=== PATIENT | male | born 1935 | race Asian ===

== ENCOUNTER 2018-07-27 17:06 | Inpatient (IN) | payer OTHER, BC ==
[2018-07-27 17:35] LABS: ABNORMAL IP MESSAGE 1; HEMATOCRIT 16.3 % (42.0-52.0); MEAN CORPUSCULAR HEMOGLOBIN 29.5 pg (29.0-33.0); MEAN CORPUSCULAR HGB CONC 33.1 g/dl (32.0-37.0); MEAN CORPUSCULAR VOLUME 89.1 fl (82.0-101.0); MEAN PLATELET VOLUME 9.3 fl (7.4-10.4); PLATELET COUNT 172 10^3/UL (140-415); POSITIVE DIFF @See below; RED BLOOD COUNT 1.83 10^6/ul (4.70-6.10); RED CELL DISTRIBUTION WIDTH 15.5 % (11.5-14.5)
[2018-07-27 17:37] LABS: ADD MAN DIFF? YES; HEMOGLOBIN 5.4 g/dl (14.0-18.0)
[2018-07-27 17:47] LABS: ALANINE AMINOTRANSFERASE 35 IU/L (13-69); ALBUMIN/GLOBULIN RATIO 0.83; ALKALINE PHOSPHATASE 245 IU/L (42-121); ANION GAP 21 (8-16); ASPARTATE AMINO TRANSFERASE 45 IU/L (15-46); BILIRUBIN,INDIRECT 0.2 mg/dl (0-1.1); BILIRUBIN,TOTAL 0.2 mg/dl (0.2-1.3); BLOOD UREA NITROGEN 84 mg/dl (7-20); CALCIUM 7.7 mg/dl (8.4-10.2); CARBON DIOXIDE 18 mmol/L (21-31); CHLORIDE 97 mmol/L (97-110); CREATININE 9.86 mg/dl (0.61-1.24); GLUCOSE 132 mg/dl (70-220); SODIUM 130 mmol/L (135-144); TOTAL PROTEIN 6.6 g/dl (6.1-8.1)
[2018-07-27] MEDS: ALBUTEROL 0.083% (NEB) 2.5 MG/3 ML AMP NEB (17:48)
[2018-07-27 17:59] LABS: B-TYPE NATRIURETIC PEPTIDE 2530 PG/ML (0-450); TROPONIN-I 0.015 ng/ml (0.000-0.120)
[2018-07-27] MEDS ORDERED: FUROSEMIDE 20 MG INJ IV (18:04)
[2018-07-27 18:37] LABS: HEMATOCRIT 20.6 % (42.0-52.0)
[2018-07-27 18:41] LABS: HEMOGLOBIN 6.7 g/dl (14.0-18.0)
[2018-07-27] MEDS: FUROSEMIDE 40 MG INJ IV (18:42)
[2018-07-27 18:58] LABS: ANION GAP 17 (8-16); BLOOD UREA NITROGEN 88 mg/dl (7-20); CALCIUM 7.3 mg/dl (8.4-10.2); CARBON DIOXIDE 17 mmol/L (21-31); CHLORIDE 100 mmol/L (97-110); CREATININE 9.71 mg/dl (0.61-1.24); GLUCOSE 139 mg/dl (70-220); SODIUM 128 mmol/L (135-144)
[2018-07-27 19:05] LABS: BAND NEUTROPHILS #M 0.2 10^3/ul (0.0-0.6); BAND NEUTROPHILS % (M) 3 % (0-4); EOSINOPHILS # 0.1 10^3/ul (0.0-0.5); EOSINOPHILS % (M) 2 % (0.0-7.0); LYMPHOCYTES # 0.6 10^3/ul (0.8-2.9); LYMPHOCYTES #M 0.6 10^3/ul (0.8-2.9); LYMPHOCYTES % (M) 9 % (15-51); MONOCYTE # 0.4 10^3/ul (0.3-0.9); MONOCYTE #M 0.3 10^3/ul (0.3-0.9); MONOCYTES % (M) 5 % (0-11); SEG NEUT #M 5.7 10^3/ul (1.7-7.5); SEGMENTED NEUTROPHILS (M) % 81 % (39-77)
[2018-07-27 19:06] LABS: HYPOCHROMASIA 2+ (0-0)
[2018-07-27 19:10] LABS: POTASSIUM 6.1 mmol/L (3.5-5.1)
[2018-07-27 19:31] LABS: IMMEDIATE SPIN CROSSMATCH 1 2
[2018-07-27] MEDS ORDERED: ACETAMINOPHEN 325 MG TAB PO ×2 (20:30→21:00)
[2018-07-27] MEDS ORDERED: ONDANSETRON 4 MG INJ IV ×2 (20:30→21:00)
[2018-07-27] MEDS: INSULIN REGULAR, HUMAN 100 UNIT/1 ML 3ML VIAL IV (20:30)
[2018-07-27] MEDS: NA BICARBONATE 8.4% 50 ML SYG IV (20:31)
[2018-07-27] MEDS: DEXTROSE 50% 50 ML SYRINGE IV (20:31)
[2018-07-27] MEDS ORDERED: NACL 0.9% 3 ML SYG IV (21:00)
[2018-07-27 21:46] LABS: AADO2 Arterial 133.1 mmHg (7.0-24.0); Allen Test ACCEPTAB; Arterial Base Excess -3.5 mmol/L (-3.0-3); Arterial Blood Gas Oxygen Sat 98.1 mmHG (95.0-100.0); Arterial COHb 0.1 % (0.0-3.0); Arterial Fraction of Oxyhgb 97.5 % (93.0-99.0); Arterial HCO3 20.2 mmol/L (22.0-26.0); Arterial MetHb 0.5 % (0.0-1.5); Arterial Total Hemglobin 7.5 g/dl (12.0-18.0); Arterial pCO2 30.7 mmhg (35-45); MODE NASAL CANNULA; Site Right Radial
[2018-07-27] MEDS: LEVALBUTEROL (NEB) 0.63 MG/3 ML AMP HHN (22:07)
[2018-07-27] MEDS: SENNA TAB PO (22:32)
[2018-07-27] MEDS: ATORVASTATIN 10 MG TAB PO (22:45)
[2018-07-27] MEDS: INSULIN GLARGINE [LANTus] (100 UNITS/ML) SYG SC (22:45)
[2018-07-28 01:17] LABS: ANION GAP 19 (8-16); BLOOD UREA NITROGEN 86 mg/dl (7-20); CALCIUM 7.3 mg/dl (8.4-10.2); CARBON DIOXIDE 19 mmol/L (21-31); CHLORIDE 97 mmol/L (97-110); CREATININE 10.35 mg/dl (0.61-1.24); GLUCOSE 160 mg/dl (70-220); POTASSIUM 5.4 mmol/L (3.5-5.1); SODIUM 130 mmol/L (135-144)
[2018-07-28] MEDS: LORAZEPAM 2 MG INJ IV ×4 (01:33→22:09)
[2018-07-28] MEDS: LEVALBUTEROL (NEB) 0.63 MG/3 ML AMP HHN ×2 (02:00→21:40)
[2018-07-28] MEDS: HALOPERIDOL 5 MG INJ IV (04:34)
[2018-07-28 05:41] LABS: ADD MAN DIFF? NO
[2018-07-28 05:45] LABS: ABNORMAL IP MESSAGE 1; BASOPHILS % 0.3 % (0.0-2.0); EOSINOPHILS # 0.1 10^3/ul (0.0-0.5); EOSINOPHILS % 2.3 % (0.0-7.0); HEMATOCRIT 19.9 % (42.0-52.0); LYMPHOCYTES # 0.6 10^3/ul (0.8-2.9); LYMPHOCYTES % 14.6 % (15.0-51.0); MEAN CORPUSCULAR HGB CONC 33.2 g/dl (32.0-37.0); MEAN CORPUSCULAR VOLUME 84.3 fl (82.0-101.0); MEAN PLATELET VOLUME 9.4 fl (7.4-10.4); MONOCYTE # 0.4 10^3/ul (0.3-0.9); MONOCYTES % 10.1 % (0.0-11.0); NEUTROPHIL # 2.9 10^3/ul (1.6-7.5); NEUTROPHILS % 71.4 % (39.0-77.0); PLATELET COUNT 134 10^3/UL (140-415); POSITIVE DIFF @See below; RED BLOOD COUNT 2.36 10^6/ul (4.70-6.10); RED CELL DISTRIBUTION WIDTH 16.1 % (11.5-14.5)
[2018-07-28 05:56] LABS: HEMOGLOBIN 6.6 g/dl (14.0-18.0)
[2018-07-28 06:25] LABS: ANION GAP 17 (8-16); BILIRUBIN,TOTAL 0.2 mg/dl (0.2-1.3); CHOL/HDL RATIO 2.8 RATIO; LDL CHOLESTEROL,CALCULATED 37 mg/dl
[2018-07-28 06:46] LABS: ALANINE AMINOTRANSFERASE 32 IU/L (13-69); ALBUMIN 2.4 g/dl (3.3-4.9); ALKALINE PHOSPHATASE 184 IU/L (42-121); ASPARTATE AMINO TRANSFERASE 35 IU/L (15-46); BILIRUBIN,INDIRECT 0.2 mg/dl (0-1.1); BLOOD UREA NITROGEN 84 mg/dl (7-20); CALCIUM 7.2 mg/dl (8.4-10.2); CARBON DIOXIDE 20 mmol/L (21-31); CHLORIDE 100 mmol/L (97-110); CHOLESTEROL 82 mg/dl (100-200); CREATININE 9.41 mg/dl (0.61-1.24); GLUCOSE 106 mg/dl (70-220); HDL CHOLESTEROL 29 mg/dl (31-75); SODIUM 132 mmol/L (135-144); TOTAL PROTEIN 5.4 g/dl (6.1-8.1); TRIGLYCERIDES 78 mg/dl (0-149)
[2018-07-28 06:58] LABS: IRON 67 ug/dl (35-150)
[2018-07-28 07:07] LABS: % IRON SATURATION 40 % SAT (22-52); TOTAL IRON BINDING CAPACITY 166 ug/dl (241-421)
[2018-07-28] MEDS ORDERED: METOPROLOL 50 MG TAB PO (09:00)
[2018-07-28] MEDS: TAMSULOSIN (SR) 0.4 MG CAP PO (09:00)
[2018-07-28] MEDS: ALLOPURINOL 300 MG TAB PO (09:00)
[2018-07-28] MEDS: EPOETIN 10000 UNITS/1 ML INJ (ESRD) SC (11:22)
[2018-07-28 12:41] LABS: ANION GAP 16 (8-16); BLOOD UREA NITROGEN 81 mg/dl (7-20); CALCIUM 7.3 mg/dl (8.4-10.2); CARBON DIOXIDE 22 mmol/L (21-31); CHLORIDE 103 mmol/L (97-110); CREATININE 7.83 mg/dl (0.61-1.24); GLUCOSE 73 mg/dl (70-220); POTASSIUM 4.8 mmol/L (3.5-5.1); SODIUM 136 mmol/L (135-144)
[2018-07-28 13:25] LABS: ADD UMIC YES; UR ASCORBIC ACID NEGATIVE (NEGATIVE); UR BILIRUBIN (Dip) NEGATIVE (NEGATIVE); UR BLOOD (Dip) 3+ mg/dL (NEGATIVE); UR CLARITY CLOUDY (CLEAR); UR COLOR RED (YELLOW); UR GLUCOSE (Dip) NEGATIVE (NEGATIVE); UR KETONES (Dip) NEGATIVE (NEGATIVE); UR LEUKOCYTE ESTERASE (Dip) 3+ Leu/ul (NEGATIVE); UR MUCUS FEW /HPF (NONE SEEN); UR NITRITE (Dip) NEGATIVE (NEGATIVE); UR RBC > 182 /HPF (0-5); UR TOTAL PROTEIN (Dip) 2+ mg/dl (NEGATIVE); UR UROBILINOGEN (Dip) NEGATIVE (NEGATIVE); UR WBC > 182 /HPF (0-5)
[2018-07-28 13:36] LABS: SODIUM,URINE RANDOM 53 mmol/L (30-90)
[2018-07-28 13:36] LABS: CREATININE,URINE RANDOM 81.22 mg/dl (20-370)
[2018-07-28 14:03] LABS: OCCULT BLOOD STOOL POSITIVE (NEGATIVE)
[2018-07-28] MEDS: FUROSEMIDE 40 MG INJ IV (18:43)
[2018-07-28 19:56] LABS: ANION GAP 17 (8-16); BLOOD UREA NITROGEN 70 mg/dl (7-20); CALCIUM 7.7 mg/dl (8.4-10.2); CARBON DIOXIDE 21 mmol/L (21-31); CHLORIDE 106 mmol/L (97-110); CREATININE 6.05 mg/dl (0.61-1.24); GLUCOSE 93 mg/dl (70-220); POTASSIUM 4.8 mmol/L (3.5-5.1); SODIUM 139 mmol/L (135-144)
[2018-07-28] MEDS: ATORVASTATIN 10 MG TAB PO (21:00)
[2018-07-28] MEDS: SENNA TAB PO (21:00)
[2018-07-28] MEDS: IPRATROPIUM (NEB) 0.5 MG/2.5 ML AMP NEB (21:40)
[2018-07-28] MEDS: INSULIN GLARGINE [LANTus] (100 UNITS/ML) SYG SC (22:05)
[2018-07-28] MEDS: DILTIAZEM 25 MG INJ IV (22:11)
[2018-07-29] MEDS: IPRATROPIUM (NEB) 0.5 MG/2.5 ML AMP NEB (01:20)
[2018-07-29] MEDS: LEVALBUTEROL (NEB) 0.63 MG/3 ML AMP HHN (01:20)
[2018-07-29] MEDS: LORAZEPAM 2 MG INJ IV ×2 (02:17→05:19)
[2018-07-29] MEDS: FUROSEMIDE 40 MG INJ IV ×2 (03:32→13:27)
[2018-07-29] MEDS: DILTIAZEM-D5W 125MG/125ML DRIP 125 ML IV ×2 (03:51→16:59)
[2018-07-29 05:54] LABS: ADD MAN DIFF? NO
[2018-07-29 05:58] LABS: WHITE BLOOD COUNT 6.6 10^3/ul (4.8-10.8)
[2018-07-29 05:58] LABS: BASOPHILS % 0.5 % (0.0-2.0); EOSINOPHILS # 0.1 10^3/ul (0.0-0.5); HEMATOCRIT 29.2 % (42.0-52.0); HEMOGLOBIN 9.4 g/dl (14.0-18.0); LYMPHOCYTES # 0.7 10^3/ul (0.8-2.9); LYMPHOCYTES % 10.7 % (15.0-51.0); MEAN CORPUSCULAR HEMOGLOBIN 28.2 pg (29.0-33.0); MEAN CORPUSCULAR HGB CONC 32.2 g/dl (32.0-37.0); MEAN CORPUSCULAR VOLUME 87.7 fl (82.0-101.0); MEAN PLATELET VOLUME 10.3 fl (7.4-10.4); MONOCYTE # 0.5 10^3/ul (0.3-0.9); MONOCYTES % 7.6 % (0.0-11.0); NEUTROPHIL # 5.1 10^3/ul (1.6-7.5); NEUTROPHILS % 76.8 % (39.0-77.0); PLATELET COUNT 151 10^3/UL (140-415); POSITIVE DIFF @See below; RED BLOOD COUNT 3.33 10^6/ul (4.70-6.10); RED CELL DISTRIBUTION WIDTH 17.2 % (11.5-14.5)
[2018-07-29 06:35] LABS: ANION GAP 17 (8-16); BLOOD UREA NITROGEN 60 mg/dl (7-20); CALCIUM 7.7 mg/dl (8.4-10.2); CARBON DIOXIDE 21 mmol/L (21-31); CHLORIDE 105 mmol/L (97-110); CREATININE 4.38 mg/dl (0.61-1.24); GLUCOSE 96 mg/dl (70-220); MAGNESIUM 1.7 mg/dl (1.7-2.5); PHOSPHORUS 4.9 mg/dl (2.5-4.9); POTASSIUM 4.5 mmol/L (3.5-5.1); SODIUM 138 mmol/L (135-144)
[2018-07-29] MEDS: TAMSULOSIN (SR) 0.4 MG CAP PO (08:17)
[2018-07-29] MEDS: ALLOPURINOL 300 MG TAB PO (08:17)
[2018-07-29] MEDS: MAGNESIUM SULFATE 3 GM in DEXTROSE 5% 100 ML IVPB (13:26)
[2018-07-29 19:46] LABS: PTH CALCIUM 7.2 mg/dL (8.6-10.3)
[2018-07-29] MEDS ORDERED: GLUCOSE GEL 15 GRAM TUBE BUCCAL (21:00)
[2018-07-29] MEDS ORDERED: DEXTROSE 50% 50 ML SYRINGE IV ×2 (21:00)
[2018-07-29] MEDS ORDERED: GLUCAGON 1 MG INJ IM (21:00)
[2018-07-29] MEDS ORDERED: GLUCOSE GEL 15 GRAM TUBE PO ×2 (21:00)
[2018-07-29] MEDS: SENNA TAB PO (21:38)
[2018-07-29] MEDS: ATORVASTATIN 10 MG TAB PO (21:38)
[2018-07-29] MEDS: INSULIN GLARGINE [LANTus] (100 UNITS/ML) SYG SC (21:42)
[2018-07-29] MEDS: INSULIN ASPART [NOVOLOG] 3 ML PEN SC (21:42)
[2018-07-29] MEDS: FUROSEMIDE 20 MG INJ IV (23:23)
[2018-07-30] MEDS: ACCU-CHEK XX (02:51)
[2018-07-30] MEDS: DILTIAZEM-D5W 125MG/125ML DRIP 125 ML IV ×3 (04:08→19:43)
[2018-07-30 06:16] LABS: ADD MAN DIFF? NO
[2018-07-30 06:21] LABS: BASOPHILS % 0.3 % (0.0-2.0); EOSINOPHILS # 0.2 10^3/ul (0.0-0.5); HEMATOCRIT 29.4 % (42.0-52.0); HEMOGLOBIN 9.7 g/dl (14.0-18.0); LYMPHOCYTES % 13.1 % (15.0-51.0); MEAN CORPUSCULAR HEMOGLOBIN 28.4 pg (29.0-33.0); MEAN CORPUSCULAR VOLUME 86.2 fl (82.0-101.0); MEAN PLATELET VOLUME 9.2 fl (7.4-10.4); MONOCYTE # 0.7 10^3/ul (0.3-0.9); NEUTROPHIL # 5.6 10^3/ul (1.6-7.5); NEUTROPHILS % 72.4 % (39.0-77.0); NUCLEATED RED BLOOD CELLS% 0.5 /100WBC (0.0-0.0); PLATELET COUNT 186 10^3/UL (140-415); RED BLOOD COUNT 3.41 10^6/ul (4.70-6.10); RED CELL DISTRIBUTION WIDTH 16.7 % (11.5-14.5)
[2018-07-30 06:21] LABS: WHITE BLOOD COUNT 7.7 10^3/ul (4.8-10.8)
[2018-07-30 06:43] LABS: ANION GAP 11 (8-16); BLOOD UREA NITROGEN 40 mg/dl (7-20); CALCIUM 7.9 mg/dl (8.4-10.2); CARBON DIOXIDE 28 mmol/L (21-31); CHLORIDE 103 mmol/L (97-110); CREATININE 2.45 mg/dl (0.61-1.24); GLUCOSE 123 mg/dl (70-220); PHOSPHORUS 4.3 mg/dl (2.5-4.9); POTASSIUM 3.9 mmol/L (3.5-5.1); SODIUM 138 mmol/L (135-144)
[2018-07-30] MEDS: INSULIN ASPART [NOVOLOG] 3 ML PEN SC ×4 (07:46→20:18)
[2018-07-30] MEDS: TAMSULOSIN (SR) 0.4 MG CAP PO (08:12)
[2018-07-30] MEDS: ALLOPURINOL 300 MG TAB PO (08:12)
[2018-07-30 08:52] LABS: PTH INTACT 235 pg/mL (14-64)
[2018-07-30] MEDS: FUROSEMIDE 20 MG INJ IV (09:00)
[2018-07-30 15:46] LABS: CREATININE, RANDOM URINE 88 mg/dL (20-320); MICROALBUMIN 25.8 mg/dL; MICROALBUMIN/CREATININE RATIO 293 (<30)
[2018-07-30 19:28] LABS: PROSTATE SPECIFIC ANTIGEN > 1000.0 ng/ml (0.0-4.0)
[2018-07-30] MEDS: ATORVASTATIN 10 MG TAB PO (20:29)
[2018-07-30] MEDS: SENNA TAB PO (20:29)
[2018-07-30] MEDS: INSULIN GLARGINE [LANTus] (100 UNITS/ML) SYG SC (20:30)
[2018-07-31] MEDS: ACCU-CHEK XX (02:00)
[2018-07-31 05:44] LABS: ADD MAN DIFF? NO
[2018-07-31 05:50] LABS: BASOPHILS % 0.3 % (0.0-2.0); EOSINOPHILS # 0.3 10^3/ul (0.0-0.5); EOSINOPHILS % 4.3 % (0.0-7.0); HEMATOCRIT 27.6 % (42.0-52.0); HEMOGLOBIN 9.1 g/dl (14.0-18.0); LYMPHOCYTES # 0.9 10^3/ul (0.8-2.9); LYMPHOCYTES % 11.2 % (15.0-51.0); MEAN CORPUSCULAR HEMOGLOBIN 28.5 pg (29.0-33.0); MEAN CORPUSCULAR VOLUME 86.5 fl (82.0-101.0); MEAN PLATELET VOLUME 8.9 fl (7.4-10.4); MONOCYTE # 0.8 10^3/ul (0.3-0.9); NEUTROPHIL # 5.4 10^3/ul (1.6-7.5); NEUTROPHILS % 70.4 % (39.0-77.0); NUCLEATED RED BLOOD CELLS% 0.3 /100WBC (0.0-0.0); PLATELET COUNT 160 10^3/UL (140-415); RED BLOOD COUNT 3.19 10^6/ul (4.70-6.10); RED CELL DISTRIBUTION WIDTH 16.2 % (11.5-14.5)
[2018-07-31 05:50] LABS: WHITE BLOOD COUNT 7.7 10^3/ul (4.8-10.8)
[2018-07-31 06:30] LABS: ANION GAP 11 (8-16); BLOOD UREA NITROGEN 27 mg/dl (7-20); CALCIUM 7.8 mg/dl (8.4-10.2); CARBON DIOXIDE 28 mmol/L (21-31); CHLORIDE 100 mmol/L (97-110); CREATININE 1.73 mg/dl (0.61-1.24); GLUCOSE 90 mg/dl (70-220); MAGNESIUM 1.7 mg/dl (1.7-2.5); PHOSPHORUS 3.5 mg/dl (2.5-4.9); POTASSIUM 3.2 mmol/L (3.5-5.1); SODIUM 136 mmol/L (135-144)
[2018-07-31] MEDS: INSULIN ASPART [NOVOLOG] 3 ML PEN SC ×4 (08:00→20:14)
[2018-07-31] MEDS: ALLOPURINOL 300 MG TAB PO (08:10)
[2018-07-31] MEDS: TAMSULOSIN (SR) 0.4 MG CAP PO (08:10)
[2018-07-31] MEDS: POTASSIUM CHLORIDE (SR) 20 MEQ TAB PO (10:08)
[2018-07-31 11:08] LABS: INR 1.13; PROTIME 14.7 Sec (11.9-14.9); PT RATIO 1.1
[2018-07-31] MEDS: FUROSEMIDE 20 MG INJ IV (14:57)
[2018-07-31] MEDS: SENNA TAB PO (20:09)
[2018-07-31] MEDS: ATORVASTATIN 10 MG TAB PO (20:09)
[2018-07-31] MEDS: INSULIN GLARGINE [LANTus] (100 UNITS/ML) SYG SC (20:14)
[2018-08-01] MEDS: LEVALBUTEROL (NEB) 0.63 MG/3 ML AMP HHN (00:56)
[2018-08-01] MEDS: ACCU-CHEK XX (02:00)
[2018-08-01 06:11] LABS: ADD MAN DIFF? NO
[2018-08-01] MEDS: DILTIAZEM-D5W 125MG/125ML DRIP 125 ML IV (06:17)
[2018-08-01 06:19] LABS: ABNORMAL IP MESSAGE 1; BASOPHILS % 0.3 % (0.0-2.0); EOSINOPHILS # 0.4 10^3/ul (0.0-0.5); EOSINOPHILS % 4.8 % (0.0-7.0); HEMATOCRIT 27.2 % (42.0-52.0); HEMOGLOBIN 8.9 g/dl (14.0-18.0); LYMPHOCYTES % 12.8 % (15.0-51.0); MEAN CORPUSCULAR HEMOGLOBIN 28.3 pg (29.0-33.0); MEAN CORPUSCULAR HGB CONC 32.7 g/dl (32.0-37.0); MEAN CORPUSCULAR VOLUME 86.6 fl (82.0-101.0); MEAN PLATELET VOLUME 9.2 fl (7.4-10.4); MONOCYTE # 0.7 10^3/ul (0.3-0.9); MONOCYTES % 9.4 % (0.0-11.0); NEUTROPHIL # 5.1 10^3/ul (1.6-7.5); NEUTROPHILS % 67.2 % (39.0-77.0); NUCLEATED RED BLOOD CELLS% 0.3 /100WBC (0.0-0.0); PLATELET COUNT 180 10^3/UL (140-415); POSITIVE DIFF @See below; RED BLOOD COUNT 3.14 10^6/ul (4.70-6.10)
[2018-08-01 06:19] LABS: WHITE BLOOD COUNT 7.6 10^3/ul (4.8-10.8)
[2018-08-01 06:42] LABS: ANION GAP 8 (8-16); BLOOD UREA NITROGEN 19 mg/dl (7-20); CALCIUM 7.7 mg/dl (8.4-10.2); CARBON DIOXIDE 28 mmol/L (21-31); CHLORIDE 100 mmol/L (97-110); CREATININE 1.47 mg/dl (0.61-1.24); GLUCOSE 174 mg/dl (70-220); MAGNESIUM 1.6 mg/dl (1.7-2.5); PHOSPHORUS 3.1 mg/dl (2.5-4.9); POTASSIUM 3.6 mmol/L (3.5-5.1); SODIUM 132 mmol/L (135-144)
[2018-08-01] MEDS: TAMSULOSIN (SR) 0.4 MG CAP PO (08:33)
[2018-08-01] MEDS: ALLOPURINOL 300 MG TAB PO (08:33)
[2018-08-01] MEDS: INSULIN ASPART [NOVOLOG] 3 ML PEN SC ×3 (08:35→17:46)
[2018-08-01] MEDS: MAGNESIUM SULFATE 2 GM/50 ML 50 ML IVPB (09:21)
[2018-08-01 10:13] LABS: ANISOCYTOSIS 1+ (0-0); BAND NEUTROPHILS #M 0.3 10^3/ul (0.0-0.6); BAND NEUTROPHILS % (M) 4 % (0-4); BASOPHIL #M 0.1 10^3/ul (0.0-0.0); BASOPHILS % (M) 2 % (0-2); EOSINOPHILS % (M) 2 % (0-7); GIANT THROMBO% (M) 1 % (0-0); LYMPHOCYTES % (M) 14 % (15-51); MICROCYTOSIS 1+ (0-0); MONOCYTE #M 0.8 10^3/ul (0.3-0.9); MONOCYTES % (M) 11 % (0-11); MYELOCYTES #M 0.1 10^3/ul (0.0-0.0); MYELOCYTES % (M) 2 % (0-0); PLATELET ESTIMATE NORMAL; POIKILOCYTOSIS 1+ (0-0); POLYCHROMASIA 3+ (0-0); SCHISTOCYTES 1+ (0-0); SEGMENTED NEUTROPHILS (M) % 65 % (39-77); SMUDGE%M 10 % (0-0)
[2018-08-01] MEDS: LIDOCAINE 1% (MPF) 5 ML VIAL (14:24)
[2018-08-01] MEDS: METOPROLOL (XL) 100 MG TAB PO (17:34)
[2018-08-01] MEDS: LABETALOL HCL 20MG INJ IV (17:35)
[2018-08-01 18:14] LABS: FLUID TOTAL PROTEIN 3.3 g/dl
[2018-08-01] MEDS ORDERED: METOPROLOL 25 MG TAB PO ×2 (21:00)
== END 2018-08-01 20:20 | DRG 291 ==
LOC: E/R 17:06 → 6WM 07-29 10:22
PROC: 30233N1 Transfusion of Nonautologous Red Blood Cells into Peripheral Vein, Percutaneous Approach (ICD-10-PCS; 2018-07-27)
PROC: 0W993ZZ Drainage of Right Pleural Cavity, Percutaneous Approach (ICD-10-PCS; principal; 2018-08-01)
DX: I13.0 Hypertensive heart and chronic kidney disease with heart failure and stage 1 through stage 4 chronic kidney disease, or unspecified chronic kidney disease (principal); J96.01 Acute respiratory failure with hypoxia; G93.41 Metabolic encephalopathy; N17.0 Acute kidney failure with tubular necrosis; E87.1 Hypo-osmolality and hyponatremia; E87.2 Acidosis; D62 Acute posthemorrhagic anemia; E10.22 Type 1 diabetes mellitus with diabetic chronic kidney disease; N18.9 Chronic kidney disease, unspecified; E87.5 Hyperkalemia; R31.0 Gross hematuria; N40.1 Benign prostatic hyperplasia with lower urinary tract symptoms; R33.8 Other retention of urine
CPT/HCPCS: 36415; 36430; 36600; 71045; 74176; 76775; 76942; 80048; 80053; 80061; 81001; 81003; 82043; 82270; 82306; 82728; 82803; 82962; 83036; 83540; 83735; 83880; 83970; 84100; 84153; 84154; 84155; 84157; 84300; 84484; 85014; 85018; 85025; 85610; 86850; 86900; 86901; 86920; 88104; 88305; 93005; 93306; 94640; 94660; 94664; 96374; 99291-25

== ENCOUNTER 2018-08-16 04:44 | Inpatient (IN) | payer OTHER, BC ==
[2018-08-16 05:02] LABS: AADO2 Arterial 106.3 mmHg (7.0-24.0); Allen Test ACCEPTAB; Arterial Base Excess -0.5 mmol/L (-3.0-3); Arterial COHb 0.3 % (0.0-3.0); Arterial Fraction of Oxyhgb 97.4 % (93.0-99.0); Arterial MetHb 0.3 % (0.0-1.5); MODE NASAL CANNULA; Site Right Radial
[2018-08-16 05:17] LABS: ADD MAN DIFF? NO
[2018-08-16 05:18] LABS: BASOPHILS % 0.2 % (0.0-2.0); HEMATOCRIT 24.1 % (42.0-52.0); HEMOGLOBIN 8.2 g/dl (14.0-18.0); LYMPHOCYTES # 0.8 10^3/ul (0.8-2.9); LYMPHOCYTES % 8.9 % (15.0-51.0); MEAN CORPUSCULAR HEMOGLOBIN 27.8 pg (29.0-33.0); MEAN CORPUSCULAR VOLUME 81.7 fl (82.0-101.0); MEAN PLATELET VOLUME 8.6 fl (7.4-10.4); MONOCYTE # 0.9 10^3/ul (0.3-0.9); MONOCYTES % 9.5 % (0.0-11.0); NEUTROPHIL # 7.4 10^3/ul (1.6-7.5); NEUTROPHILS % 80.3 % (39.0-77.0); PLATELET COUNT 199 10^3/UL (140-415); RED BLOOD COUNT 2.95 10^6/ul (4.70-6.10); RED CELL DISTRIBUTION WIDTH 15.4 % (11.5-14.5)
[2018-08-16 05:18] LABS: WHITE BLOOD COUNT 9.2 10^3/ul (4.8-10.8)
[2018-08-16] MEDS: CEFEPIME 2GM/50 ML (PMX) 50 ML IVPB (05:25)
[2018-08-16] MEDS: SOD CHLORIDE 0.9% 1,000 ML IV ×2 (05:25→14:25)
[2018-08-16] MEDS: LACTATED RINGER'S 1,000 ML IV (05:26)
[2018-08-16 05:38] LABS: INR 1.24; PROTIME 15.8 Sec (11.9-14.9); PT RATIO 1.2
[2018-08-16 05:51] LABS: LACTIC ACID 1.6 mmol/L (0.5-2.0)
[2018-08-16 05:52] LABS: ANION GAP 15 (8-16); BLOOD UREA NITROGEN 21 mg/dl (7-20); CALCIUM 7.9 mg/dl (8.4-10.2); CARBON DIOXIDE 22 mmol/L (21-31); CHLORIDE 93 mmol/L (97-110); CREATININE 1.79 mg/dl (0.61-1.24); GLUCOSE 193 mg/dl (70-220); POTASSIUM 4.9 mmol/L (3.5-5.1); SODIUM 125 mmol/L (135-144)
[2018-08-16 06:03] LABS: TROPONIN-I 0.051 ng/ml (0.000-0.120)
[2018-08-16] MEDS: SOD CHLORIDE 0.9% 500 ML IV (06:03)
[2018-08-16] MEDS: VANCOMYCIN 1 GM (PMX) 250 ML IVPB (07:00)
[2018-08-16 07:36] LABS: LACTIC ACID 1.4 mmol/L (0.5-2.0)
[2018-08-16 09:40] LABS: LACTIC ACID 1.3 mmol/L (0.5-2.0)
[2018-08-16] MEDS ORDERED: LEVALBUTEROL (NEB) 1.25 MG/0.5 ML AMP (09:48)
[2018-08-16] MEDS: LEVALBUTEROL (NEB) 1.25 MG/0.5 ML AMP HHN ×2 (09:50→20:30)
[2018-08-16] MEDS ORDERED: ACETAMINOPHEN 500 MG TAB (10:07)
[2018-08-16] MEDS: ACETAMINOPHEN 500 MG TAB PO (10:18)
[2018-08-16] MEDS ORDERED: DOCUSATE SODIUM 100 MG CAP PO (14:00)
[2018-08-16] MEDS ORDERED: HYDROCODONE/APAP (5/325) TAB PO (14:00)
[2018-08-16] MEDS ORDERED: ACETAMINOPHEN 650 MG SUPP PR (14:00)
[2018-08-16] MEDS ORDERED: GLUCAGON 1 MG INJ IM (14:00)
[2018-08-16] MEDS ORDERED: BISACODYL 10 MG SUPP PR (14:00)
[2018-08-16] MEDS ORDERED: ALBUTEROL 0.083% (NEB) 2.5 MG/3 ML AMP NEB (14:00)
[2018-08-16] MEDS ORDERED: DEXTROSE 50% 50 ML SYRINGE IV ×2 (14:00)
[2018-08-16] MEDS ORDERED: morphine 2 MG INJ IV (14:00)
[2018-08-16] MEDS ORDERED: NACL 0.9% 3 ML SYG IV (14:00)
[2018-08-16] MEDS ORDERED: GLUCOSE GEL 15 GRAM TUBE BUCCAL (14:00)
[2018-08-16] MEDS ORDERED: GLUCOSE GEL 15 GRAM TUBE PO ×2 (14:00)
[2018-08-16] MEDS: FUROSEMIDE 40 MG INJ IV (14:25)
[2018-08-16] MEDS ORDERED: VANCOMYCIN IV PER PHARMACY XX (14:30)
[2018-08-16 14:38] LABS: AADO2 Arterial 23.2 mmHg (7.0-24.0); Allen Test ACCEPTAB; Arterial Base Excess -1.7 mmol/L (-3.0-3); Arterial COHb 0.3 % (0.0-3.0); Arterial Fraction of Oxyhgb 98.3 % (93.0-99.0); Arterial HCO3 21.4 mmol/L (22.0-26.0); Arterial MetHb 0.4 % (0.0-1.5); Arterial Total Hemglobin 9.4 g/dl (12.0-18.0); Arterial pCO2 30.1 mmhg (35-45); MODE NASAL CANNULA; Site Right Radial
[2018-08-16] MEDS: INSULIN ASPART [NOVOLOG] 3 ML PEN SC ×4 (15:22→21:00)
[2018-08-16 15:31] LABS: LACTIC ACID 1.3 mmol/L (0.5-2.0)
[2018-08-16] MEDS: SOD CHLORIDE 0.9% 250 ML IV (19:30)
[2018-08-16] MEDS: METOPROLOL 25 MG TAB PO (19:39)
[2018-08-16 19:41] LABS: ADD UMIC YES; UR ASCORBIC ACID NEGATIVE (NEGATIVE); UR BILIRUBIN (Dip) NEGATIVE (NEGATIVE); UR BLOOD (Dip) 2+ mg/dL (NEGATIVE); UR CLARITY TURBID (CLEAR); UR COLOR YELLOW (YELLOW); UR GLUCOSE (Dip) NEGATIVE (NEGATIVE); UR KETONES (Dip) NEGATIVE (NEGATIVE); UR LEUKOCYTE ESTERASE (Dip) 3+ Leu/ul (NEGATIVE); UR NITRITE (Dip) POSITIVE (NEGATIVE); UR NONSQUAMOUS EPITHELIAL CELL 11 /HPF (NONE SEEN); UR RBC 95 /HPF (0-5); UR TOTAL PROTEIN (Dip) 2+ mg/dl (NEGATIVE); UR UROBILINOGEN (Dip) NEGATIVE (NEGATIVE); UR WBC > 182 /HPF (0-5)
[2018-08-16] MEDS ORDERED: ADENOSINE 2 ML (19:50)
[2018-08-16] MEDS ORDERED: METOPROLOL 5 MG INJ (19:52)
[2018-08-16] MEDS: ALBUTEROL/IPRATROPIUM (NEB) 3 ML AMP HHN (20:00)
[2018-08-16] MEDS: BUDESONIDE (NEB) 0.5MG/2ML AMP HHN (20:00)
[2018-08-16] MEDS ORDERED: ADENOSINE 6 MG INJ IV (20:00)
[2018-08-16] MEDS: ALPRAZOLAM 0.25 MG TAB PO (20:00)
[2018-08-16 20:05] LABS: SODIUM,URINE RANDOM 58 mmol/L (30-90)
[2018-08-16 20:10] LABS: CREATININE,URINE RANDOM 70.47 mg/dl (20-370); PROTEIN/CREAT RATIO 2.73 RATIO
[2018-08-16] MEDS: METOPROLOL 5 MG INJ IV (20:41)
[2018-08-16] MEDS: SENNA TAB PO (20:51)
[2018-08-16] MEDS: BUMETANIDE 1 MG INJ IV (20:51)
[2018-08-16] MEDS: ATORVASTATIN 10 MG TAB PO (20:51)
[2018-08-16] MEDS: INSULIN GLARGINE [LANTus] (100 UNITS/ML) SYG SC (20:59)
[2018-08-16] MEDS: LACTOBACILLUS RHAMNOSUS CAP PO (21:00)
[2018-08-16] MEDS ORDERED: HALOPERIDOL 5 MG INJ IM (21:00)
[2018-08-16] MEDS: HEPARIN 5,000 UNIT/0.5 ML VIAL SC (21:00)
[2018-08-17] MEDS: VANCOMYCIN 500MG/NS (PMX) 100 ML IVPB
[2018-08-17] MEDS ORDERED: LEVALBUTEROL (NEB) 1.25 MG/0.5 ML AMP HHN (01:30)
[2018-08-17] MEDS: ACCU-CHEK XX (02:00)
[2018-08-17] MEDS: LEVALBUTEROL (NEB) 1.25 MG/0.5 ML AMP HHN ×4 (02:18→20:21)
[2018-08-17] MEDS: PANTOPRAZOLE 40 MG INJ IV (05:12)
[2018-08-17] MEDS: FUROSEMIDE 20 MG INJ IV ×2 (05:12→18:51)
[2018-08-17] MEDS: CEFEPIME 2GM/50 ML (PMX) 50 ML IVPB (05:12)
[2018-08-17 06:13] LABS: ADD MAN DIFF? NO
[2018-08-17 06:30] LABS: WHITE BLOOD COUNT 8.2 10^3/ul (4.8-10.8)
[2018-08-17 06:30] LABS: ABNORMAL IP MESSAGE 1; BASOPHILS % 0.1 % (0.0-2.0); EOSINOPHILS % 0.2 % (0.0-7.0); HEMATOCRIT 23.3 % (42.0-52.0); HEMOGLOBIN 7.6 g/dl (14.0-18.0); LYMPHOCYTES # 0.5 10^3/ul (0.8-2.9); LYMPHOCYTES % 5.5 % (15.0-51.0); MEAN CORPUSCULAR HEMOGLOBIN 27.7 pg (29.0-33.0); MEAN CORPUSCULAR HGB CONC 32.6 g/dl (32.0-37.0); MEAN PLATELET VOLUME 8.7 fl (7.4-10.4); MONOCYTE # 0.6 10^3/ul (0.3-0.9); MONOCYTES % 7.6 % (0.0-11.0); NEUTROPHILS % 84.9 % (39.0-77.0); PLATELET COUNT 177 10^3/UL (140-415); POSITIVE DIFF @See below; RED BLOOD COUNT 2.74 10^6/ul (4.70-6.10); RED CELL DISTRIBUTION WIDTH 15.6 % (11.5-14.5)
[2018-08-17 06:48] LABS: ALANINE AMINOTRANSFERASE 41 IU/L (13-69); ALBUMIN 1.9 g/dl (3.3-4.9); ALKALINE PHOSPHATASE 307 IU/L (42-121); ANION GAP 15 (8-16); ASPARTATE AMINO TRANSFERASE 58 IU/L (15-46); BILIRUBIN,INDIRECT 0.2 mg/dl (0-1.1); BILIRUBIN,TOTAL 0.2 mg/dl (0.2-1.3); BLOOD UREA NITROGEN 30 mg/dl (7-20); CALCIUM 7.5 mg/dl (8.4-10.2); CARBON DIOXIDE 23 mmol/L (21-31); CHLORIDE 99 mmol/L (97-110); CHOL/HDL RATIO 2.5 RATIO; CHOLESTEROL 67 mg/dl (100-200); CREATININE 1.63 mg/dl (0.61-1.24); GLUCOSE 135 mg/dl (70-220); HDL CHOLESTEROL 26 mg/dl (31-75); LDL CHOLESTEROL,CALCULATED 16 mg/dl; PHOSPHORUS 4.3 mg/dl (2.5-4.9); POTASSIUM 4.2 mmol/L (3.5-5.1); SODIUM 133 mmol/L (135-144); TOTAL PROTEIN 4.6 g/dl (6.1-8.1); TRIGLYCERIDES 123 mg/dl (0-149)
[2018-08-17 06:56] LABS: URIC ACID 5.3 mg/dl (3.1-7.9)
[2018-08-17 06:56] LABS: CREATINE KINASE 298 IU/L (23-200)
[2018-08-17 07:04] LABS: FREE THYROXINE INDEX (Calc) 2.68 ug/ml (0.65-3.89); T3 UPTAKE 52.5 % (23.5-40.5); T4 (THYROXINE) 5.1 ug/dl (5.5-11.0)
[2018-08-17 07:13] LABS: HEMOGLOBIN A1C 6.9 % (0-5.9)
[2018-08-17 07:17] LABS: THYROID STIMULATING HORMONE 0.741 MIU/L (0.465-4.680)
[2018-08-17] MEDS: INSULIN ASPART [NOVOLOG] 3 ML PEN SC ×7 (07:55→20:12)
[2018-08-17] MEDS: BUDESONIDE (NEB) 0.5MG/2ML AMP HHN ×2 (08:20→20:22)
[2018-08-17 08:30] LABS: BAND NEUTROPHILS #M 1.1 10^3/ul (0.0-0.6); BAND NEUTROPHILS % (M) 14 % (0-4); BURR CELLS 1+ (0-0); EOSINOPHILS % (M) 1 % (0-7); GIANT THROMBO% (M) 1 % (0-0); LYMPHOCYTES % (M) 1 % (15-51); MONOCYTE #M 0.4 10^3/ul (0.3-0.9); MONOCYTES % (M) 6 % (0-11); PLATELET ESTIMATE NORMAL; POIKILOCYTOSIS 1+ (0-0); POLYCHROMASIA 1+ (0-0); SEG NEUT #M 6.5 10^3/ul (1.6-7.5); SEGMENTED NEUTROPHILS (M) % 78 % (39-77); SMUDGE%M 12 % (0-0); SPHEROCYTES 1+ (0-0); TOXIC GRANULATION 2+ (0-0)
[2018-08-17] MEDS: ALLOPURINOL 300 MG TAB PO (09:08)
[2018-08-17] MEDS: TAMSULOSIN (SR) 0.4 MG CAP PO (09:08)
[2018-08-17] MEDS: AMLODIPINE 5 MG TAB PO (09:08)
[2018-08-17] MEDS: LACTOBACILLUS RHAMNOSUS CAP PO ×2 (09:09→20:12)
[2018-08-17] MEDS: ASPIRIN 81 MG TAB PO (09:09)
[2018-08-17] MEDS: MULTIVITAMINS THERAPEUTIC TAB PO (09:09)
[2018-08-17] MEDS: METOPROLOL 50 MG TAB PO ×2 (09:09→20:13)
[2018-08-17] MEDS: HEPARIN 5,000 UNIT/0.5 ML VIAL SC ×2 (09:14→20:15)
[2018-08-17 12:31] LABS: TROPONIN-I 0.022 ng/ml (0.000-0.120)
[2018-08-17 12:49] LABS: CREATINE KINASE 283 IU/L (23-200)
[2018-08-17 12:59] LABS: CK INDEX 0.4; CK-MB 1.08 ng/ml (0.0-2.4)
[2018-08-17 13:03] LABS: TROPONIN-I 0.018 ng/ml (0.000-0.120)
[2018-08-17] MEDS: LIDOCAINE 1% (MPF) 5 ML VIAL (16:32)
[2018-08-17 17:16] LABS: FLD PMN% 29.2 %; FLD RBC 14000 /uL; FLD WBC 339 /cmm
[2018-08-17 18:52] LABS: FLD CLARITY HAZY; FLD COLOR RED
[2018-08-17 18:52] LABS: FLD TYPE THORACENTHESIS
[2018-08-17 18:53] LABS: FLD MN% 70.8 %
[2018-08-17] MEDS ORDERED: PENDING SANTYL ORDER FOR WOUND CARE XX (20:00)
[2018-08-17] MEDS: SENNA TAB PO (20:12)
[2018-08-17] MEDS: ATORVASTATIN 10 MG TAB PO (20:12)
[2018-08-17] MEDS: INSULIN GLARGINE [LANTus] (100 UNITS/ML) SYG SC (20:15)
[2018-08-18] MEDS: VANCOMYCIN 500MG/NS (PMX) 100 ML IVPB
[2018-08-18] MEDS: ACCU-CHEK XX (02:00)
[2018-08-18] MEDS: LEVALBUTEROL (NEB) 1.25 MG/0.5 ML AMP HHN ×4 (02:30→19:13)
[2018-08-18] MEDS: CEFEPIME 2GM/50 ML (PMX) 50 ML IVPB (04:00)
[2018-08-18 06:38] LABS: ADD MAN DIFF? NO
[2018-08-18 06:40] LABS: ABNORMAL IP MESSAGE 1; BASOPHILS % 0.2 % (0.0-2.0); EOSINOPHILS % 0.5 % (0.0-7.0); LYMPHOCYTES # 0.6 10^3/ul (0.8-2.9); LYMPHOCYTES % 6.9 % (15.0-51.0); MEAN CORPUSCULAR HEMOGLOBIN 27.9 pg (29.0-33.0); MEAN CORPUSCULAR HGB CONC 33.3 g/dl (32.0-37.0); MEAN CORPUSCULAR VOLUME 83.7 fl (82.0-101.0); MEAN PLATELET VOLUME 8.8 fl (7.4-10.4); MONOCYTE # 0.7 10^3/ul (0.3-0.9); MONOCYTES % 7.8 % (0.0-11.0); NEUTROPHIL # 6.9 10^3/ul (1.6-7.5); NEUTROPHILS % 81.8 % (39.0-77.0); PLATELET COUNT 146 10^3/UL (140-415); POSITIVE DIFF @See below; RED BLOOD COUNT 2.51 10^6/ul (4.70-6.10); RED CELL DISTRIBUTION WIDTH 15.7 % (11.5-14.5)
[2018-08-18 06:40] LABS: WHITE BLOOD COUNT 8.5 10^3/ul (4.8-10.8)
[2018-08-18] MEDS: PANTOPRAZOLE 40 MG INJ IV (06:43)
[2018-08-18] MEDS: FUROSEMIDE 20 MG INJ IV ×2 (06:43→17:10)
[2018-08-18 07:31] LABS: ANION GAP 11 (8-16); BLOOD UREA NITROGEN 31 mg/dl (7-20); CALCIUM 7.7 mg/dl (8.4-10.2); CARBON DIOXIDE 24 mmol/L (21-31); CHLORIDE 97 mmol/L (97-110); GLUCOSE 129 mg/dl (70-220); POTASSIUM 3.8 mmol/L (3.5-5.1); SODIUM 128 mmol/L (135-144)
[2018-08-18] MEDS: BUDESONIDE (NEB) 0.5MG/2ML AMP HHN ×2 (08:14→19:13)
[2018-08-18] MEDS: HEPARIN 5,000 UNIT/0.5 ML VIAL SC ×2 (08:35→20:31)
[2018-08-18] MEDS: INSULIN ASPART [NOVOLOG] 3 ML PEN SC ×7 (08:36→20:32)
[2018-08-18] MEDS: MULTIVITAMINS THERAPEUTIC TAB PO (08:37)
[2018-08-18] MEDS: ASPIRIN 81 MG TAB PO (08:37)
[2018-08-18] MEDS: TAMSULOSIN (SR) 0.4 MG CAP PO (08:37)
[2018-08-18] MEDS: ALLOPURINOL 300 MG TAB PO (08:37)
[2018-08-18] MEDS: LACTOBACILLUS RHAMNOSUS CAP PO ×2 (08:38→20:20)
[2018-08-18] MEDS: METOPROLOL 50 MG TAB PO ×2 (08:38→20:21)
[2018-08-18 11:51] LABS: IRON 37 ug/dl (35-150)
[2018-08-18 12:00] LABS: % IRON SATURATION 27 % SAT (22-52); TOTAL IRON BINDING CAPACITY 139 ug/dl (241-421)
[2018-08-18 12:10] LABS: PREALBUMIN 4.8 mg/dl (17.6-36.0)
[2018-08-18 14:35] LABS: OSMOLALITY 267 mOsm/kg (280-295)
[2018-08-18] MEDS ORDERED: morphine LIQ (10 MG/5 ML) CUP PO (17:00)
[2018-08-18] MEDS: SOD FERRIC GLUC COMPLX 125 MG in SOD CHLORIDE 0.9% 100 ML IVPB (17:08)
[2018-08-18] MEDS: EPOETIN 3000 UNITS/ML (NON ESRD/NON ONCOLOGY) SC (17:10)
[2018-08-18] MEDS: SENNA TAB PO (20:20)
[2018-08-18] MEDS: ATORVASTATIN 10 MG TAB PO (20:21)
[2018-08-18] MEDS: MUPIROCIN 2% 22 GM OINT TOP (20:26)
[2018-08-18] MEDS: INSULIN GLARGINE [LANTus] (100 UNITS/ML) SYG SC (20:31)
[2018-08-18] MEDS ORDERED: MUPIROCIN 2% 22 GM OINT TOP (21:00)
[2018-08-19] MEDS: VANCOMYCIN 500MG/NS (PMX) 100 ML IVPB (00:27)
[2018-08-19] MEDS: LEVALBUTEROL (NEB) 1.25 MG/0.5 ML AMP HHN ×4 (01:18→20:51)
[2018-08-19] MEDS: ACCU-CHEK XX (01:27)
[2018-08-19] MEDS: CEFEPIME 2GM/50 ML (PMX) 50 ML IVPB (04:35)
[2018-08-19] MEDS: PANTOPRAZOLE (EC) 40 MG TAB PO (05:12)
[2018-08-19] MEDS: FUROSEMIDE 20 MG TAB PO (05:13)
[2018-08-19 06:40] LABS: ADD MAN DIFF? NO
[2018-08-19 06:44] LABS: ABNORMAL IP MESSAGE 1; BASOPHILS % 0.2 % (0.0-2.0); EOSINOPHILS # 0.1 10^3/ul (0.0-0.5); EOSINOPHILS % 0.9 % (0.0-7.0); HEMATOCRIT 20.9 % (42.0-52.0); LYMPHOCYTES # 0.7 10^3/ul (0.8-2.9); LYMPHOCYTES % 7.3 % (15.0-51.0); MEAN CORPUSCULAR HEMOGLOBIN 27.7 pg (29.0-33.0); MEAN CORPUSCULAR VOLUME 83.9 fl (82.0-101.0); MONOCYTE # 0.6 10^3/ul (0.3-0.9); MONOCYTES % 6.4 % (0.0-11.0); NEUTROPHIL # 7.9 10^3/ul (1.6-7.5); NEUTROPHILS % 80.9 % (39.0-77.0); PLATELET COUNT 146 10^3/UL (140-415); POSITIVE DIFF @See below; RED BLOOD COUNT 2.49 10^6/ul (4.70-6.10); RED CELL DISTRIBUTION WIDTH 15.7 % (11.5-14.5)
[2018-08-19 06:44] LABS: WHITE BLOOD COUNT 9.8 10^3/ul (4.8-10.8)
[2018-08-19 07:08] LABS: HEMOGLOBIN 6.9 g/dl (14.0-18.0)
[2018-08-19 07:36] LABS: ANION GAP 13 (8-16); BLOOD UREA NITROGEN 30 mg/dl (7-20); CALCIUM 7.5 mg/dl (8.4-10.2); CARBON DIOXIDE 23 mmol/L (21-31); CHLORIDE 95 mmol/L (97-110); CREATININE 1.33 mg/dl (0.61-1.24); GLUCOSE 135 mg/dl (70-220); POTASSIUM 3.6 mmol/L (3.5-5.1); SODIUM 127 mmol/L (135-144)
[2018-08-19] MEDS: INSULIN ASPART [NOVOLOG] 3 ML PEN SC ×7 (07:55→20:16)
[2018-08-19] MEDS: TAMSULOSIN (SR) 0.4 MG CAP PO (08:14)
[2018-08-19] MEDS: LACTOBACILLUS RHAMNOSUS CAP PO ×2 (08:14→20:25)
[2018-08-19] MEDS: ALLOPURINOL 300 MG TAB PO (08:14)
[2018-08-19] MEDS: ASPIRIN 81 MG TAB PO (08:14)
[2018-08-19] MEDS: METOPROLOL 50 MG TAB PO ×2 (08:14→20:18)
[2018-08-19] MEDS: MULTIVITAMINS THERAPEUTIC TAB PO (08:14)
[2018-08-19] MEDS: BALSAM PERU/CASTOR OIL 60 GM TUBE TOP (08:15)
[2018-08-19] MEDS: MUPIROCIN 2% 22 GM OINT TOP ×2 (08:15→20:19)
[2018-08-19] MEDS: HEPARIN 5,000 UNIT/0.5 ML VIAL SC ×2 (08:36→20:23)
[2018-08-19] MEDS: BUDESONIDE (NEB) 0.5MG/2ML AMP HHN ×2 (08:52→20:51)
[2018-08-19 09:29] LABS: ANISOCYTOSIS 1+ (0-0); BAND NEUTROPHILS #M 0.9 10^3/ul (0.0-0.6); BAND NEUTROPHILS % (M) 10 % (0-4); BASOPHILS % (M) 1 % (0-2); EOSINOPHILS % (M) 1 % (0-7); LYMPHOCYTES #M 0.1 10^3/ul (0.8-2.9); LYMPHOCYTES % (M) 2 % (15-51); MONOCYTE #M 0.1 10^3/ul (0.3-0.9); MONOCYTES % (M) 2 % (0-11); PLATELET ESTIMATE DECREASED; SEG NEUT #M 8.3 10^3/ul (1.6-7.5); SEGMENTED NEUTROPHILS (M) % 84 % (39-77); SMUDGE%M 7 % (0-0)
[2018-08-19] MEDS ORDERED: SOD CHLORIDE 0.9% 500 ML IV (10:30)
[2018-08-19] MEDS ORDERED: ALBUMIN HUMAN 25% 100 ML IV (10:30)
[2018-08-19 12:11] LABS: HEMATOCRIT 19.9 % (42.0-52.0)
[2018-08-19 12:37] LABS: HEMOGLOBIN 6.6 g/dl (14.0-18.0)
[2018-08-19 14:25] LABS: IMMEDIATE SPIN CROSSMATCH 1 2
[2018-08-19] MEDS: LEVOFLOXACIN 500 MG TAB PO (17:40)
[2018-08-19] MEDS: FUROSEMIDE 20 MG INJ IV (17:41)
[2018-08-19] MEDS: BARIUM SULF 2% 450 ML BTL (BERRY SMOOTHIE) PO (18:30)
[2018-08-19] MEDS: SENNA TAB PO (20:17)
[2018-08-19] MEDS: ATORVASTATIN 10 MG TAB PO (20:18)
[2018-08-19] MEDS: DOXYCYCLINE 100 MG TAB PO (20:18)
[2018-08-19] MEDS: INSULIN GLARGINE [LANTus] (100 UNITS/ML) SYG SC (20:24)
[2018-08-20] MEDS ORDERED: VANCOMYCIN 750 MG in SOD CHLORIDE 0.9% 150 ML IVPB
[2018-08-20] MEDS: LEVALBUTEROL (NEB) 1.25 MG/0.5 ML AMP HHN ×4 (01:58→19:33)
[2018-08-20] MEDS: ACCU-CHEK XX (02:00)
[2018-08-20] MEDS: LEVOFLOXACIN 500 MG TAB PO (05:06)
[2018-08-20] MEDS: PANTOPRAZOLE (EC) 40 MG TAB PO (05:06)
[2018-08-20 06:37] LABS: ABNORMAL IP MESSAGE 1; HEMATOCRIT 25.9 % (42.0-52.0); HEMOGLOBIN 8.9 g/dl (14.0-18.0); MEAN CORPUSCULAR HEMOGLOBIN 29.1 pg (29.0-33.0); MEAN CORPUSCULAR HGB CONC 34.4 g/dl (32.0-37.0); MEAN CORPUSCULAR VOLUME 84.6 fl (82.0-101.0); MEAN PLATELET VOLUME 9.4 fl (7.4-10.4); NUCLEATED RED BLOOD CELLS% 0.2 /100WBC (0.0-0.0); PLATELET COUNT 134 10^3/UL (140-415); POSITIVE DIFF @See below; RED BLOOD COUNT 3.06 10^6/ul (4.70-6.10); RED CELL DISTRIBUTION WIDTH 15.2 % (11.5-14.5)
[2018-08-20 06:37] LABS: WHITE BLOOD COUNT 11.5 10^3/ul (4.8-10.8)
[2018-08-20 06:49] LABS: ADD MAN DIFF? YES
[2018-08-20 06:57] LABS: ANION GAP 11 (8-16); BLOOD UREA NITROGEN 27 mg/dl (7-20); CALCIUM 7.7 mg/dl (8.4-10.2); CARBON DIOXIDE 24 mmol/L (21-31); CHLORIDE 98 mmol/L (97-110); CREATININE 1.23 mg/dl (0.61-1.24); GLUCOSE 126 mg/dl (70-220); POTASSIUM 3.8 mmol/L (3.5-5.1); SODIUM 129 mmol/L (135-144)
[2018-08-20 07:06] LABS: B-TYPE NATRIURETIC PEPTIDE 1840 PG/ML (0-450)
[2018-08-20 07:31] LABS: CANCER ANTIGEN 19-9 15.2 U/ml (0.0-37.0)
[2018-08-20] MEDS: BUDESONIDE (NEB) 0.5MG/2ML AMP HHN ×2 (07:46→19:33)
[2018-08-20] MEDS: INSULIN ASPART [NOVOLOG] 3 ML PEN SC ×7 (07:55→20:27)
[2018-08-20 08:25] LABS: BAND NEUTROPHILS #M 0.4 10^3/ul (0.0-0.6); BAND NEUTROPHILS % (M) 4 % (0-4); LYMPHOCYTES #M 0.3 10^3/ul (0.8-2.9); LYMPHOCYTES % (M) 3 % (15-51); MONOCYTE #M 0.4 10^3/ul (0.3-0.9); MONOCYTES % (M) 4 % (0-11); PLASMA CELLS #M 0.1 10^3/ul (0.0-0.0); PLASMAC%(M) 1 % (0); PLATELET ESTIMATE DECREASED; PROMYELOCYTES #M 0.1 10^3/ul (0-0); PROMYELOCYTES % (M) 1 % (0-0); SEG NEUT #M 10.1 10^3/ul (1.6-7.5); SEGMENTED NEUTROPHILS (M) % 87 % (39-77); SMUDGE%M 16 % (0-0)
[2018-08-20] MEDS: DOXYCYCLINE 100 MG TAB PO ×2 (09:02→20:28)
[2018-08-20] MEDS: FUROSEMIDE 20 MG TAB PO (09:02)
[2018-08-20] MEDS: TAMSULOSIN (SR) 0.4 MG CAP PO (09:02)
[2018-08-20] MEDS: ALLOPURINOL 300 MG TAB PO (09:02)
[2018-08-20] MEDS: LACTOBACILLUS RHAMNOSUS CAP PO ×2 (09:03→20:28)
[2018-08-20] MEDS: METOPROLOL 50 MG TAB PO ×2 (09:04→20:30)
[2018-08-20] MEDS: ASPIRIN 81 MG TAB PO (09:05)
[2018-08-20] MEDS: MULTIVITAMINS THERAPEUTIC TAB PO (09:05)
[2018-08-20] MEDS: MUPIROCIN 2% 22 GM OINT TOP ×2 (09:05→20:29)
[2018-08-20] MEDS: BALSAM PERU/CASTOR OIL 60 GM TUBE TOP (09:05)
[2018-08-20] MEDS: HEPARIN 5,000 UNIT/0.5 ML VIAL SC (09:28)
[2018-08-20 09:39] LABS: PROSTATE SPECIFIC ANTIGEN > 1000.0 ng/ml (0.0-4.0)
[2018-08-20] MEDS: EPOETIN 3000 UNITS/ML (NON ESRD/NON ONCOLOGY) SC (17:46)
[2018-08-20] MEDS: ATORVASTATIN 10 MG TAB PO (20:28)
[2018-08-20] MEDS: SENNA TAB PO (20:28)
[2018-08-20] MEDS: INSULIN GLARGINE [LANTus] (100 UNITS/ML) SYG SC (20:38)
[2018-08-21] MEDS: LEVALBUTEROL (NEB) 1.25 MG/0.5 ML AMP HHN ×4 (01:20→20:30)
[2018-08-21] MEDS: ACCU-CHEK XX (02:00)
[2018-08-21] MEDS: PANTOPRAZOLE (EC) 40 MG TAB PO (05:47)
[2018-08-21] MEDS: LEVOFLOXACIN 500 MG TAB PO (05:47)
[2018-08-21] MEDS: INSULIN ASPART [NOVOLOG] 3 ML PEN SC ×7 (07:55→20:25)
[2018-08-21] MEDS: BUDESONIDE (NEB) 0.5MG/2ML AMP HHN ×2 (07:55→20:30)
[2018-08-21] MEDS: ASPIRIN 81 MG TAB PO (08:52)
[2018-08-21] MEDS: TAMSULOSIN (SR) 0.4 MG CAP PO (08:52)
[2018-08-21] MEDS: DOXYCYCLINE 100 MG TAB PO ×2 (08:52→20:24)
[2018-08-21] MEDS: LACTOBACILLUS RHAMNOSUS CAP PO ×2 (08:52→20:24)
[2018-08-21] MEDS: ALLOPURINOL 300 MG TAB PO (08:52)
[2018-08-21] MEDS: MULTIVITAMINS THERAPEUTIC TAB PO (08:53)
[2018-08-21] MEDS: BALSAM PERU/CASTOR OIL 60 GM TUBE TOP (09:00)
[2018-08-21] MEDS: METOPROLOL 50 MG TAB PO ×2 (09:00→20:25)
[2018-08-21] MEDS: MUPIROCIN 2% 22 GM OINT TOP ×2 (09:00→20:26)
[2018-08-21] MEDS: LIDOCAINE 1% (MPF) 5 ML VIAL (12:00)
[2018-08-21 15:01] LABS: SODIUM 130 mmol/L (135-144)
[2018-08-21] MEDS: TOLVAPTAN 15 MG TABLET PO (18:01)
[2018-08-21] MEDS: ATORVASTATIN 10 MG TAB PO (20:24)
[2018-08-21] MEDS: SENNA TAB PO (20:25)
[2018-08-21] MEDS: INSULIN GLARGINE [LANTus] (100 UNITS/ML) SYG SC (20:46)
[2018-08-21] MEDS: ACETAMINOPHEN 325 MG TAB PO (21:47)
[2018-08-21 22:46] LABS: SODIUM 130 mmol/L (135-144)
[2018-08-22] MEDS: ACCU-CHEK XX (01:20)
[2018-08-22] MEDS: LEVALBUTEROL (NEB) 1.25 MG/0.5 ML AMP HHN ×4 (03:44→21:03)
[2018-08-22] MEDS: HYDROCODONE/APAP (5/325) TAB PO (04:06)
[2018-08-22] MEDS: LEVOFLOXACIN 500 MG TAB PO (05:37)
[2018-08-22] MEDS: PANTOPRAZOLE (EC) 40 MG TAB PO (05:37)
[2018-08-22 07:33] LABS: ABNORMAL IP MESSAGE 1; HEMATOCRIT 25.4 % (42.0-52.0); HEMOGLOBIN 8.4 g/dl (14.0-18.0); MEAN CORPUSCULAR HEMOGLOBIN 28.9 pg (29.0-33.0); MEAN CORPUSCULAR HGB CONC 33.1 g/dl (32.0-37.0); MEAN CORPUSCULAR VOLUME 87.3 fl (82.0-101.0); MEAN PLATELET VOLUME 9.5 fl (7.4-10.4); NUCLEATED RED BLOOD CELLS% 0.4 /100WBC (0.0-0.0); PLATELET COUNT 127 10^3/UL (140-415); POSITIVE DIFF @See below; RED BLOOD COUNT 2.91 10^6/ul (4.70-6.10); RED CELL DISTRIBUTION WIDTH 15.9 % (11.5-14.5)
[2018-08-22 07:33] LABS: WHITE BLOOD COUNT 10.5 10^3/ul (4.8-10.8)
[2018-08-22 07:36] LABS: ADD MAN DIFF? YES
[2018-08-22 07:47] LABS: SODIUM 133 mmol/L (135-144)
[2018-08-22 07:51] LABS: ANION GAP 10 (8-16); BLOOD UREA NITROGEN 23 mg/dl (7-20); CALCIUM 7.8 mg/dl (8.4-10.2); CARBON DIOXIDE 26 mmol/L (21-31); CHLORIDE 101 mmol/L (97-110); CREATININE 1.39 mg/dl (0.61-1.24); GLUCOSE 108 mg/dl (70-220); POTASSIUM 4.1 mmol/L (3.5-5.1); SODIUM 133 mmol/L (135-144)
[2018-08-22] MEDS: INSULIN ASPART [NOVOLOG] 3 ML PEN SC ×7 (07:55→21:00)
[2018-08-22] MEDS: ONDANSETRON 4 MG INJ IV (08:00)
[2018-08-22 08:48] LABS: ANISOCYTOSIS 1+ (0-0); BAND NEUTROPHILS #M 0.5 10^3/ul (0.0-0.6); BAND NEUTROPHILS % (M) 5 % (0-4); BURR CELLS 1+ (0-0); EOSINOPHILS % (M) 2 % (0-7); LYMPHOCYTES #M 0.6 10^3/ul (0.8-2.9); LYMPHOCYTES % (M) 6 % (15-51); METAMYELOCYTES #M 0.2 10^3/ul (0.0-0.0); METAMYELOCYTES %M 2 % (0-0); MONOCYTE #M 0.3 10^3/ul (0.3-0.9); MONOCYTES % (M) 3 % (0-11); MYELOCYTES #M 0.2 10^3/ul (0.0-0.0); MYELOCYTES % (M) 2 % (0-0); OVALOCYTES 1+ (0-0); PLASMA CELLS #M 0.2 10^3/ul (0.0-0.0); PLASMAC%(M) 2 % (0); PLATELET ESTIMATE DECREASED; POIKILOCYTOSIS 1+ (0-0); POLYCHROMASIA 1+ (0-0); SCHISTOCYTES 1+ (0-0); SEG NEUT #M 8.2 10^3/ul (1.6-7.5); SEGMENTED NEUTROPHILS (M) % 78 % (39-77); SMUDGE%M 5 % (0-0)
[2018-08-22] MEDS: MUPIROCIN 2% 22 GM OINT TOP ×2 (09:00→22:26)
[2018-08-22] MEDS: BALSAM PERU/CASTOR OIL 60 GM TUBE TOP (09:00)
[2018-08-22] MEDS: BUDESONIDE (NEB) 0.5MG/2ML AMP HHN ×2 (09:42→21:03)
[2018-08-22] MEDS: ALLOPURINOL 300 MG TAB PO (10:05)
[2018-08-22] MEDS: DOXYCYCLINE 100 MG TAB PO ×2 (10:05→22:24)
[2018-08-22] MEDS: ASPIRIN 81 MG TAB PO (10:05)
[2018-08-22] MEDS: MULTIVITAMINS THERAPEUTIC TAB PO (10:05)
[2018-08-22] MEDS: LACTOBACILLUS RHAMNOSUS CAP PO ×2 (10:05→22:24)
[2018-08-22] MEDS: TAMSULOSIN (SR) 0.4 MG CAP PO (10:05)
[2018-08-22] MEDS: METOPROLOL 50 MG TAB PO ×2 (10:08→22:25)
[2018-08-22] MEDS: BICALUTAMIDE 50 MG TAB PO (10:46)
[2018-08-22] MEDS: EPOETIN 3000 UNITS/ML (NON ESRD/NON ONCOLOGY) SC (18:26)
[2018-08-22] MEDS: ATORVASTATIN 10 MG TAB PO (22:24)
[2018-08-22] MEDS: SENNA TAB PO (22:24)
[2018-08-22] MEDS: INSULIN GLARGINE [LANTus] (100 UNITS/ML) SYG SC (22:40)
[2018-08-23] MEDS: LEVALBUTEROL (NEB) 1.25 MG/0.5 ML AMP HHN ×4 (02:00→20:42)
[2018-08-23] MEDS: ACCU-CHEK XX (02:00)
[2018-08-23] MEDS: LEVOFLOXACIN 500 MG TAB PO (05:07)
[2018-08-23] MEDS: PANTOPRAZOLE (EC) 40 MG TAB PO (05:07)
[2018-08-23 07:01] LABS: ABNORMAL IP MESSAGE 1; ADD MAN DIFF? NO; BASOPHIL # 0.1 10^3/ul (0.0-0.1); BASOPHILS % 0.4 % (0.0-2.0); EOSINOPHILS # 0.2 10^3/ul (0.0-0.5); EOSINOPHILS % 1.3 % (0.0-7.0); HEMOGLOBIN 9.6 g/dl (14.0-18.0); LYMPHOCYTES # 1.1 10^3/ul (0.8-2.9); LYMPHOCYTES % 9.5 % (15.0-51.0); MEAN CORPUSCULAR HEMOGLOBIN 29.3 pg (29.0-33.0); MEAN CORPUSCULAR HGB CONC 33.1 g/dl (32.0-37.0); MEAN CORPUSCULAR VOLUME 88.4 fl (82.0-101.0); MONOCYTE # 0.7 10^3/ul (0.3-0.9); MONOCYTES % 5.5 % (0.0-11.0); NEUTROPHIL # 8.5 10^3/ul (1.6-7.5); NEUTROPHILS % 71.6 % (39.0-77.0); NUCLEATED RED BLOOD CELLS # 0.1 10^3/ul (0.0-0.0); NUCLEATED RED BLOOD CELLS% 0.5 /100WBC (0.0-0.0); PLATELET COUNT 135 10^3/UL (140-415); POSITIVE DIFF @See below; RED BLOOD COUNT 3.28 10^6/ul (4.70-6.10); RED CELL DISTRIBUTION WIDTH 16.2 % (11.5-14.5)
[2018-08-23 07:01] LABS: WHITE BLOOD COUNT 11.9 10^3/ul (4.8-10.8)
[2018-08-23 07:25] LABS: ANION GAP 12 (8-16); BLOOD UREA NITROGEN 25 mg/dl (7-20); CALCIUM 8.7 mg/dl (8.4-10.2); CARBON DIOXIDE 26 mmol/L (21-31); CHLORIDE 102 mmol/L (97-110); CREATININE 1.59 mg/dl (0.61-1.24); GLUCOSE 103 mg/dl (70-220); MAGNESIUM 2.1 mg/dl (1.7-2.5); POTASSIUM 4.4 mmol/L (3.5-5.1); SODIUM 136 mmol/L (135-144)
[2018-08-23] MEDS: INSULIN ASPART [NOVOLOG] 3 ML PEN SC ×7 (07:55→21:00)
[2018-08-23] MEDS: TAMSULOSIN (SR) 0.4 MG CAP PO (08:41)
[2018-08-23] MEDS: DOXYCYCLINE 100 MG TAB PO ×2 (08:41→21:36)
[2018-08-23] MEDS: ASPIRIN 81 MG TAB PO (08:41)
[2018-08-23] MEDS: ALLOPURINOL 300 MG TAB PO (08:41)
[2018-08-23] MEDS: LACTOBACILLUS RHAMNOSUS CAP PO ×2 (08:41→21:55)
[2018-08-23] MEDS: BUDESONIDE (NEB) 0.5MG/2ML AMP HHN ×2 (08:41→20:42)
[2018-08-23] MEDS: MULTIVITAMINS THERAPEUTIC TAB PO (08:42)
[2018-08-23] MEDS: METOPROLOL 50 MG TAB PO ×2 (08:43→21:38)
[2018-08-23] MEDS: BALSAM PERU/CASTOR OIL 60 GM TUBE TOP (08:43)
[2018-08-23] MEDS: MUPIROCIN 2% 22 GM OINT TOP ×2 (08:43→21:38)
[2018-08-23] MEDS: BICALUTAMIDE 50 MG TAB PO (08:48)
[2018-08-23] MEDS: MAGNESIUM HYDROXIDE 30ML CUP PO (12:17)
[2018-08-23] MEDS: SOD CHLORIDE 0.9% 1,000 ML IV (15:08)
[2018-08-23] MEDS: SENNA TAB PO (21:37)
[2018-08-23] MEDS: ATORVASTATIN 10 MG TAB PO (21:37)
[2018-08-23] MEDS: INSULIN GLARGINE [LANTus] (100 UNITS/ML) SYG SC (21:54)
[2018-08-24] MEDS: ACCU-CHEK XX (02:00)
[2018-08-24] MEDS: LEVALBUTEROL (NEB) 1.25 MG/0.5 ML AMP HHN ×3 (02:31→14:32)
[2018-08-24 06:04] LABS: ADD MAN DIFF? NO
[2018-08-24] MEDS: PANTOPRAZOLE (EC) 40 MG TAB PO (06:05)
[2018-08-24] MEDS: LEVOFLOXACIN 500 MG TAB PO (06:05)
[2018-08-24 06:11] LABS: ABNORMAL IP MESSAGE 1; BASOPHILS % 0.3 % (0.0-2.0); EOSINOPHILS # 0.1 10^3/ul (0.0-0.5); EOSINOPHILS % 0.8 % (0.0-7.0); HEMATOCRIT 25.7 % (42.0-52.0); HEMOGLOBIN 8.4 g/dl (14.0-18.0); LYMPHOCYTES # 1.2 10^3/ul (0.8-2.9); LYMPHOCYTES % 9.4 % (15.0-51.0); MEAN CORPUSCULAR HGB CONC 32.7 g/dl (32.0-37.0); MEAN CORPUSCULAR VOLUME 88.6 fl (82.0-101.0); MEAN PLATELET VOLUME 8.6 fl (7.4-10.4); MONOCYTE # 0.7 10^3/ul (0.3-0.9); MONOCYTES % 5.9 % (0.0-11.0); NEUTROPHIL # 9.4 10^3/ul (1.6-7.5); NEUTROPHILS % 76.1 % (39.0-77.0); NUCLEATED RED BLOOD CELLS # 0.1 10^3/ul (0.0-0.0); NUCLEATED RED BLOOD CELLS% 0.5 /100WBC (0.0-0.0); PLATELET COUNT 115 10^3/UL (140-415); POSITIVE DIFF @See below
[2018-08-24 06:11] LABS: WHITE BLOOD COUNT 12.4 10^3/ul (4.8-10.8)
[2018-08-24 06:37] LABS: ANION GAP 10 (8-16); BLOOD UREA NITROGEN 25 mg/dl (7-20); CARBON DIOXIDE 26 mmol/L (21-31); CHLORIDE 104 mmol/L (97-110); CREATININE 1.39 mg/dl (0.61-1.24); GLUCOSE 149 mg/dl (70-220); POTASSIUM 4.4 mmol/L (3.5-5.1); SODIUM 136 mmol/L (135-144)
[2018-08-24] MEDS: INSULIN ASPART [NOVOLOG] 3 ML PEN SC ×4 (07:48→12:20)
[2018-08-24 08:01] LABS: ANISOCYTOSIS 1+ (0-0); BAND NEUTROPHILS #M 0.8 10^3/ul (0.0-0.6); BAND NEUTROPHILS % (M) 7 % (0-4); LYMPHOCYTES #M 0.6 10^3/ul (0.8-2.9); LYMPHOCYTES % (M) 5 % (15-51); METAMYELOCYTES #M 0.1 10^3/ul (0.0-0.0); METAMYELOCYTES %M 1 % (0-0); MICROCYTOSIS 1+ (0-0); MONOCYTE #M 0.1 10^3/ul (0.3-0.9); MONOCYTES % (M) 1 % (0-11); PLATELET ESTIMATE DECREASED; POLYCHROMASIA 1+ (0-0); SEG NEUT #M 10.8 10^3/ul (1.6-7.5); SEGMENTED NEUTROPHILS (M) % 86 % (39-77); SMUDGE%M 9 % (0-0)
[2018-08-24] MEDS: DOXYCYCLINE 100 MG TAB PO (08:06)
[2018-08-24] MEDS: METOPROLOL 50 MG TAB PO (08:06)
[2018-08-24] MEDS: BICALUTAMIDE 50 MG TAB PO (08:08)
[2018-08-24] MEDS: ALLOPURINOL 300 MG TAB PO (08:10)
[2018-08-24] MEDS: MULTIVITAMINS THERAPEUTIC TAB PO (08:10)
[2018-08-24] MEDS: BALSAM PERU/CASTOR OIL 60 GM TUBE TOP (08:10)
[2018-08-24] MEDS: TAMSULOSIN (SR) 0.4 MG CAP PO (08:10)
[2018-08-24] MEDS: ASPIRIN 81 MG TAB PO (08:10)
[2018-08-24] MEDS: MUPIROCIN 2% 22 GM OINT TOP (08:10)
[2018-08-24] MEDS: LACTOBACILLUS RHAMNOSUS CAP PO (08:10)
[2018-08-24] MEDS: BUDESONIDE (NEB) 0.5MG/2ML AMP HHN (08:56)
[2018-08-24] MEDS: SOD CHLORIDE 0.9% 1,000 ML IV (10:42)
[2018-08-24] MEDS: METOPROLOL 25 MG TAB PO (12:18)
== END 2018-08-24 17:12 | DRG 871 ==
LOC: E/R 04:44 → TEL 06:26
PROC: 0W993ZZ Drainage of Right Pleural Cavity, Percutaneous Approach (ICD-10-PCS; 2018-08-17)
PROC: 30233N1 Transfusion of Nonautologous Red Blood Cells into Peripheral Vein, Percutaneous Approach (ICD-10-PCS; 2018-08-19)
PROC: 0W9B3ZZ Drainage of Left Pleural Cavity, Percutaneous Approach (ICD-10-PCS; principal; 2018-08-21)
DX: A41.9 Sepsis, unspecified organism (principal); J18.9 Pneumonia, unspecified organism; J96.01 Acute respiratory failure with hypoxia; I50.33 Acute on chronic diastolic (congestive) heart failure; I50.30 Unspecified diastolic (congestive) heart failure; J90 Pleural effusion, not elsewhere classified; N17.9 Acute kidney failure, unspecified; I13.0 Hypertensive heart and chronic kidney disease with heart failure and stage 1 through stage 4 chronic kidney disease, or unspecified chronic kidney disease; N39.0 Urinary tract infection, site not specified; C78.00 Secondary malignant neoplasm of unspecified lung; C79.51 Secondary malignant neoplasm of bone; E22.2 Syndrome of inappropriate secretion of antidiuretic hormone; N13.30 Unspecified hydronephrosis; B96.1 Klebsiella pneumoniae [K. pneumoniae] as the cause of diseases classified elsewhere; C61 Malignant neoplasm of prostate; D50.9 Iron deficiency anemia, unspecified; D63.1 Anemia in chronic kidney disease; E11.22 Type 2 diabetes mellitus with diabetic chronic kidney disease; E78.5 Hyperlipidemia, unspecified; E11.21 Type 2 diabetes mellitus with diabetic nephropathy; I45.10 Unspecified right bundle-branch block; J44.9 Chronic obstructive pulmonary disease, unspecified; N18.3 Chronic kidney disease, stage 3 (moderate)
CPT/HCPCS: 36415; 36430; 36600; 70551; 71045; 71250; 74176; 76604; 76775; 76942; 80048; 80053; 80061; 80202; 81001; 81003; 82378; 82550; 82553; 82570; 82728; 82803; 82962; 83036; 83540; 83605; 83735; 83880; 83930; 84100; 84134; 84153; 84154; 84295; 84300; 84436; 84443; 84479; 84484; 84560; 85014; 85018; 85025; 85610; 85730; 86301; 86850; 86900; 86901; 86920; 87040; 87070; 87081; 87086; 87102; 87116; 88104; 88305; 88341; 88342; 89051; 89190; 93005; 94640; 94664; 96374; 99285-25